=== PATIENT | female | born 1960 | race Caucasian/White ===

== ENCOUNTER 2016-11-14 21:45 | Emergency (ER) | payer OTHER ==
[~2016-11-14] VITALS: Ht 177.8 cm; Wt 79.4 kg
[2016-11-14] MEDS ORDERED: OXYMETAZOLINE HCL NASAL SPRAY 30 ML BOTTLE NS ONE (23:16)
[2016-11-14] MEDS ORDERED: SILVER NITRATE APPLICATOR 1 EA BOX ONE ×2 (23:17)
[2016-11-15] MEDS ORDERED: OXYMETAZOLINE HCL NASAL SPRAY 30 ML BOTTLE NS ONE
[2016-11-15] MEDS ORDERED: SILVER NITRATE APPLICATOR 1 EA BOX TP ONE ×2
[2016-11-15] MEDS ORDERED: SILVER NITRATE APPLICATOR 1 EA BOX ONE ×2 (01:06)
[2016-11-15 01:12] VITALS: BP 175/100
== END 2016-11-15 01:13 | disposition home or self-care (01) ==
LOC: ER 21:50
DX: R04.0 Epistaxis (principal); F10.20 Alcohol dependence, uncomplicated
CPT/HCPCS: A4606; Z7610